=== PATIENT | female | born 1970 | race Caucasian/White ===

== ENCOUNTER 2022-04-23 06:48 | Day surgery (SDC) | payer OTHER ==
[~2022-04-23] VITALS: Ht 157.5 cm; Wt 83.9 kg
[2022-04-23] MEDS ORDERED: LIDOCAINE 2% 100 MG/5 ML UJET TP ONE (07:49)
[2022-04-23] MEDS ORDERED: fentaNYL citrate 0.05 MG/ML VIAL ONE (07:49)
[2022-04-23] MEDS ORDERED: MIDAZOLAM 5 MG/5 ML VIAL ONE (07:59)
[2022-04-23] MEDS ORDERED: MIDAZOLAM 2 MG/2 ML VIAL IVP ONE (09:20)
[2022-04-23] MEDS ORDERED: fentaNYL citrate 0.05 MG/ML VIAL IVP ONE (09:20)
== END 2022-04-23 10:00 | disposition home or self-care (01) ==
LOC: MOR 06:48 → MMU 06:50 → MOR 10:00
PROVIDERS: ATTEND Internal Medicine Gastroenterology
DX: Z12.11 Encounter for screening for malignant neoplasm of colon (principal); K57.30 Diverticulosis of large intestine without perforation or abscess without bleeding; I10 Essential (primary) hypertension; R14.0 Abdominal distension (gaseous); E66.9 Obesity, unspecified; Z98.51 Tubal ligation status; Z98.890 Other specified postprocedural states; Z79.899 Other long term (current) drug therapy; Z68.33 Body mass index [BMI] 33.0-33.9, adult
CPT/HCPCS: 45378; J2250; J3010